=== PATIENT | male | born 1980 | race African-American/Black ===

== ENCOUNTER 2023-08-31 11:18 | Emergency (ER) | payer OTHER ==
[~2023-08-31] VITALS: Ht 175.3 cm; Wt 82.0 kg
[2023-08-31 11:22] VITALS: TEMP 98.6; O2SAT 99
[2023-08-31] MEDS ORDERED: ZIPRASIDONE MESYLATE 20MG/VIAL IM STA (11:25)
[2023-08-31 11:59] LABS: BASOPHILS % 0.8 % (0.0-2.0); HEMATOCRIT. 44.5 % (42.0-52.0); HEMOGLOBIN. 14.5 g/dL (14.0-18.0); LYMPHOCYTES % 19.6 % (20.0-50.0); MEAN CORPUSCULAR HEMOGLOBIN 31.1 pg (28.0-32.0); MEAN CORPUSCULAR HGB CONC 32.7 g/dL (31.0-37.0); MEAN CORPUSCULAR VOLUME 95.2 fL (80.0-94.0); MONOCYTES % 6.5 % (2.0-8.0); NEUTROPHILS % 72.1 % (40.0-76.0); RED BLOOD CELL COUNT 4.67 mill/uL (4.7-6.1); RED CELL DISTRIBUTION WIDTH 14.1 % (11.6-14.6)
[2023-08-31 12:07] LABS: DIFFERENTIAL COMMENT 1
[2023-08-31 12:14] LABS: CLARITY URINE CLOUDY (CLEAR); COLOR URINE RED (YELLOW); GLUCOSE URINE NEGATIVE (NEGATIVE); KETONES URINE NEGATIVE (NEGATIVE); LEUKOCYTE ESTERASE URINE 1+ (NEGATIVE); NITRITE URINE NEGATIVE (NEGATIVE); OCCULT BLOOD URINE 3+ (NEGATIVE); PROTEIN URINE 2+ (NEGATIVE); UROBILINOGEN URINE 0.2 E.U./dL (0.2-1.0)
[2023-08-31 12:36] LABS: *AMPHETAMINES SCREEN URINE NEGATIVE (NEGATIVE); *BARBITURATES SCREEN URINE NEGATIVE (NEGATIVE); *BENZODIAZEPINES SCREEN URINE NEGATIVE (NEGATIVE); *COCAINE SCREEN URINE NEGATIVE (NEGATIVE); CANNABINOID URINE SCREEN PRESUMPTIVE POSITIVE (NEGATIVE); ECSTASY MDMA SCREEN URINE NEGATIVE (NEGATIVE); METHADONE URINE SCREEN Neg (NEGATIVE); OPIATES URINE SCREEN NEGATIVE (NEGATIVE); PHENCYCLIDINE URINE SCREEN PRESUMTIVE POSITIVE (NEGATIVE)
[2023-08-31 12:41] LABS: RBC URINE TNTC /hpf (0-2)
[2023-08-31 12:42] LABS: BACTERIA URINE TRACE
[2023-08-31 12:43] LABS: SQUAMOUS EPITHELIAL CELL URINE 1+ /lpf (RARE/1+); WBC URINE 0-2 /hpf (0-2)
[2023-08-31 13:09] LABS: PLATELET 536 x1000/uL (130-400)
[2023-08-31 13:32] VITALS: BP 157/107; PULSE 89; RESP 17
[2023-08-31 14:41] LABS: ALANINE AMINOTRANSFERASE 46 IU/L (10-49); ASPARTATE AMINOTRANSFERASE 49 IU/L (<34); BILIRUBIN TOTAL 0.7 mg/dL (0.1-1.0); CALCIUM 10.5 mg/dL (8.7-10.4); CHLORIDE 104 mEq/L (98-107); CREATININE 1.2 mg/dL (0.6-1.3); GLUCOSE 92 mg/dL (70-105); POTASSIUM 5.2 mEq/L (3.5-5.1); PROTEIN TOTAL 9.3 g/dL (6.0-8.3); SODIUM 140 mEq/L (136-145); UREA NITROGEN BLOOD 13 mg/dL (9-23)
[2023-08-31 14:42] LABS: ETHANOL BLOOD < 10 mg/dL (<10)
[2023-08-31 14:52] LABS: CARBON DIOXIDE 27 mEq/L (21-32)
== END 2023-08-31 15:13 | disposition home or self-care (01) ==
LOC: ER 11:26
DX: R41.82 Altered mental status, unspecified (principal); F19.90 Other psychoactive substance use, unspecified, uncomplicated
CPT/HCPCS: 80053; 80305; 81003; 80320; 85025; 36415; 96372; 99283; J3486; Z7610; G0480

== ENCOUNTER 2024-01-06 23:36 | Emergency (ER) | payer OTHER ==
[~2024-01-06] VITALS: Ht 175.3 cm; Wt 79.0 kg
[2024-01-06 23:43] VITALS: O2SAT 98
[2024-01-07 01:53] VITALS: BP 163/88; PULSE 88; RESP 14; TEMP 98.4
== END 2024-01-07 01:54 | disposition home or self-care (01) ==
LOC: EDBD 23:36 → EDUNIT# 23:36 → ER 23:36
DX: F19.90 Other psychoactive substance use, unspecified, uncomplicated (principal); R00.0 Tachycardia, unspecified
CPT/HCPCS: 99283